=== PATIENT | female | born 1980 | race American Indian/Alaskan Native ===

== ENCOUNTER 2020-08-12 08:44 | Emergency (ER) | payer OTHER ==
[2020-08-12] MEDS ORDERED: IBUPROFEN 600 MG TAB PO ONE (09:19)
[2020-08-12] MEDS ORDERED: CYCLOBENZAPRINE 10 MG TAB PO ONE (09:19)
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
--- NOTE | 2020-08-12 10:26 | XRay Report ---
RIGHT SHOULDER 3 VIEWS INDICATION / CLINICAL INFORMATION: R shoulder/ neck pain. COMPARISON: None available. FINDINGS: Internal and external rotation views show no fracture or dislocation. Scapula and clavicle appear unr emarkable. Signer Name: Toño Castañeda MD Signed: 08/12/2020 10:21 AM Workstation Name: [id number]
--- NOTE | 2020-08-12 10:26 | XRay Report ---
CLINICAL DATA: R shoulder/neck pain TECHNICAL DATA: AP, lateral, and odontoid views of the cervical spine were obtained. FINDINGS: The vertebral body heights, disc spaces, and alignment are well within normal limits. Minimum degener ative changes present characterized by small anterior osteophytes C3-C4 and C5. There is no evidence of fracture. No prevertebral soft tissue swelling is evident. IMPRESSION: Minimum degenerative changes as noted Signer Name: Bob Vuong MD Signed: 08/12/2020 10:21 AM Workstation Name: [id number]
[2020-08-12] MEDS ORDERED: oxyCODONE /ACETAMINOPHEN 5-325MG TAB PO ONE (10:37)
[2020-08-12 10:39] VITALS: BP 146/96
== END 2020-08-12 10:56 | disposition home or self-care (01) ==
LOC: ED 08:44
DX: S46.911A Strain of unspecified muscle, fascia and tendon at shoulder and upper arm level, right arm, initial encounter (principal); Z79.899 Other long term (current) drug therapy; V49.49XA Driver injured in collision with other motor vehicles in traffic accident, initial encounter; Y92.410 Unspecified street and highway as the place of occurrence of the external cause; Y93.89 Activity, other specified; Y99.8 Other external cause status
CPT/HCPCS: 72040